=== PATIENT | female | born 2005 | race Caucasian/White ===

== ENCOUNTER 2025-01-14 17:16 | Emergency (ER) | payer OTHER, SELFPAY ==
--- NOTE | 2025-01-14 17:27 | ED_ITS ---
HPI - Ear Problem General Chief complaint: Ear Stated complaint: EARACHE Time Seen by Provider: 01/14/25 17:27 Source: patient, RN notes reviewed and old records reviewed Mode of arrival: ambulatory Limitations: no limitations History of Present Illness HPI Narrative: 19-year-old female presents to the [facility] with complaints of cold symptoms, itchy earWorse on the right than left. States that when she pushes on it she developed some pain but goes away within 30 seconds. SX started Saturday Patient reports that her mom told her when she was a kid she has a history of ear infections. Related Data Home Medications ?Medication ?Instructions ?Recorded ?Confirmed ?Last Taken ?Type No Home Medications 01/14/25 01/14/25 Unknown History Allergies Allergy/AdvReac Type Severity Reaction Status Date / Time No Known Allergies Allergy Verified 01/14/25 17:29 Review of Systems Review of Systems: All systems reviewed & are unremarkable except as noted in HPI and below Constitutional: Constitutional: Reports no additional constitutional complaints ENT: Reports as per HPI Cardiovascular: Cardiovascular: Reports no additional cardiovascular complaints, Denies chest pain and Denies dyspnea Respiratory: Respiratory: Reports no additional respiratory complaints, Denies chest congestion, Denies cough and Denies dyspnea Musculoskeletal: Musculoskeletal: Reports no additional musculoskeletal complaints Integumentary/Breasts: Skin/Breast: Reports system reviewed and no additional complaints, except as docu PMFSH Comments At the time of my signature, I reviewed and agree with the nursing past medical, surgical, social, and family history. There is no relevant family history pertinent to the patient complaint. Exam Const: General: cooperative, healthy appearing, comfortable, no acute distress, well developed, alert and well nourished Nutritional Appearance: well nourished Orientation/consciousness: patient oriented x3 Limitations: no limitations HENMT: Head: normal to inspection Ears: hearing grossly normal bilaterally, external ears normal, TM's normal bilaterally, EAC's normal ( Small amount of wax noted bilaterally), mastoids normal and no periauricular adenopathy Face/ Nose/Sinus: Normal external nose present, Normal nares present and No nasal discharge present Mouth: Yes Normal oral and palatal mucosa present, Yes lip normal, Yes tongue normal and Yes moist mucous membranes Throat: posterior oropharynx normal, uvula midline and no uvular edema Eyes: General: appearance normal, both eyes and all related structures Alignment and Position: alignment normal Neck: Neck: normal visual inspection, full ROM, no lymphadenopathy and no meningeal signs Chest: Chest palpation & inspection: normal inspection of the chest Resp: Effort & Inspection: normal respiratory effort and able to speak in complete sentences Auscultation: clear to auscultation bilaterally, no crackles, no rales, no rhonchi and no wheezes Cardio: Rate: regular rate Skin: General skin exam: normal color and no rashes or lesions noted Neuro: General: patient oriented x3, gait normal, moves all extremities and no meningeal signs Cognition (Neuro): normal cognition Speech: normal speech Gait exam (Neuro): Normal gait present Extrem: General: normal to inspection, full ROM, capillary refill normal and normal gait Psych: Appearance: grossly normal and well kempt Mental Status: mental status grossly normal Speech and movement: Normal speech and movement present and Clear speech present Affect: normal affect Attitude: cooperative Course Course Level of Care: Express Care Visit Vital Signs Vital signs: Vital Signs Temperature 98.2 F 01/14/25 17:30 Pulse Rate 67 01/14/25 17:30 Respiratory Rate 16 01/14/25 17:30 Blood Pressure 123/90 01/14/25 17:30 Pulse Oximetry 100 01/14/25 17:30 Temperature 98.2 F 01/14/25 17:30 Pulse Rate 67 01/14/25 17:30 Respiratory Rate 16 01/14/25 17:30 Blood Pressure 123/90 01/14/25 17:30 Pulse Oximetry 100 01/14/25 17:30 Reviewed Medical Decision Making MDM Narrative Medical decision making narrative: Patient sitting comfortably in exam room. Nontoxic, vitals stable. Patient in no acute distress Patient presents for itchy ears bilaterally. Concern for otitis media, no infection is noted on exam patient appropriate for outpatient treatment and follow-up Discharge instructions reviewed with patient, as well as provided in writing per nursing staff. The instructions also include specific and strict return/GO TO THE ER as well as f/u information. All questions have been answered, and the patient deny any further questions with discharge and discharge plan. Some parts of this dictation were generated by voice recognition software and may contain typographical and/or grammatical inaccuracies. Differential Diagnosis Differential Diagnosis: allergies, otitis media, serous otitis, otitis externa, excessive earwax Medical Records Medical records reviewed: Yes I reviewed the external patient's medical records. Vital Signs Vital Signs: Vital Signs Temperature 98.2 F 01/14/25 17:30 Pulse Rate 67 01/14/25 17:30 Respiratory Rate 16 01/14/25 17:30 Blood Pressure 123/90 01/14/25 17:30 Pulse Oximetry 100 01/14/25 17:30 Temperature 98.2 F 01/14/25 17:30 Pulse Rate 67 01/14/25 17:30 Respiratory Rate 16 01/14/25 17:30 Blood Pressure 123/90 01/14/25 17:30 Pulse Oximetry 100 01/14/25 17:30 Reviewed Lab Data Lab results reviewed: Yes I reviewed the patient's lab results. Labs: Reviewed Critical Care Time Critical Care Time Critical Care Time: No Discharge Plan Discharge Clinical Impression: Excessive cerumen in right ear canal, Earache Patient Disposition: Home Condition: Stable Instructions: Antibiotic Form, Earache (ED) Additional Instructions: take Claritin or Zyrtec every day. For the discomfort you can not alternate Motrin and Tylenol. You had Cerumen (EAR wax impaction). Do not use Q-tips or put anything in the ear. This can damage the ear. Instead , use Debrox or ear wax remover. Place 5 drops in ear after a hot shower and place a warm compress over the ear for 20 minutes. alternate doing this every 3-4 days. It will break up the wax gently. Do not use too much pressure. Once you have all of the cerumen out of your ears, you may do preventative treatment to prevent this from happening again. Use 5 drops once weekly after a hot shower. Patient Language: Polish Prescriptions: No Action No Home Medications Follow-up/Referrals: Damien,Gina [Other] - 2 Weeks (express care follow up ) Time of Disposition: 17:36
[2025-01-14 17:30] VITALS: BP 123/90; PULSE 67; RESP 16; TEMP 36.8; O2SAT 100
== END 2025-01-14 17:42 | disposition home or self-care (01) ==
PROVIDERS: Emergency Provider Nurse Practitioner
DX: H61.21 Impacted cerumen, right ear (principal); H92.01 Otalgia, right ear
CPT/HCPCS: 99202; G0463